=== PATIENT | female | born 1955 | race Caucasian/White ===

== ENCOUNTER 2023-08-05 23:07 | Inpatient (IN) | payer MEDICARE, OTHER ==
--- NOTE | 2023-08-05 23:18 | ED ---
Neuro HPI - General Stated Complaint: Stroke Time Seen by Provider: 08/05/23 23:10 Source: patient, EMS Limitations: physical limitation - History of Present Illness Is the patient presenting with stroke symptoms?: Yes -: hour(s) Initial Comments: This patient is a 68-year-old woman with history of previous stroke. She is brought to have evaluation of change in mentation, suspected left-sided weakness. The patient last seen at her baseline approximately 6 PM. The patient was checked by family members and they felt that she was not acting like her usual self. She usually is speaking quite a bit and they noticed that she was not speaking tonight. They also felt that her left side was weak. She does have left-sided residual weakness from her previous stroke but they felt that things were worse today. The patient is able to acknowledge questions though she is not speaking. She denies pain. - Related Data Home Medications: Home Medications Medication Instructions Recorded Confirmed Cholecalciferol [Vitamin D3 (25 50 mcg PO DAILY 08/06/23 08/06/23 Mcg = 1000 Iu)] Dulaglutide [Trulicity] 1.5 mg SQ Q7D 08/06/23 08/06/23 Levothyroxine Sodium [Synthroid] 100 mcg PO AC-BRKFST 08/06/23 08/06/23 Previous Rx's Medication Instructions Recorded Acetaminophen Tab [Tylenol] 650 mg PO Q6HR PRN tab 08/09/23 Aspirin 81 mg PO DAILY tab 08/09/23 Atorvastatin [Lipitor] 40 mg PO DAILY tab 08/09/23 Clopidogrel [Plavix] 75 mg PO DAILY #18 tab 08/09/23 INSULIN ASPART (NovoLOG) [NovoLOG 0 unit SQ AC-TID each 08/09/23 (formulary)] Ipratropium-Albuterol Nebulize 3 ml INHALATION RT-TID each 08/09/23 [Duoneb 0.5 mg-3 mg/3 ml Soln] Lisinopril-Hctz 20-12.5 mg 1 each PO BID tab 08/09/23 [Zestoretic 20-12.5] Nicotine 21Mg/24Hr Patch [Habitrol] 1 patch TRANSDERM DAILY patch 08/09/23 QUEtiapine [SEROquel] 12.5 mg PO HS tab 08/09/23 Allergies/Adverse Reactions: Allergies Allergy/AdvReac Type Severity Reaction Status Date / Time No Known Allergies Allergy Unverified 08/06/23 08:20 Review of Systems ROS Statement: Those systems with pertinent positive or pertinent negative responses have been documented in the HPI. ROS Other: All systems not noted in ROS Statement are negative. Limitations: ROS unobtainable due to patients medical condition (Is nonverbal) Constitutional: Denies: fever Eyes: Denies: vision change Respiratory: Denies: cough, dyspnea Cardiovascular: Denies: chest pain Gastrointestinal: Denies: abdominal pain, vomiting Musculoskeletal: Denies: back pain Neurological: Reports: weakness. Denies: headache General Exam General appearance: alert, in no apparent distress Head exam: Present: atraumatic, normocephalic Eye exam: Present: normal appearance, PERRL, EOMI. Absent: scleral icterus, conjunctival injection ENT exam: Present: mucous membranes dry Neck exam: Present: normal inspection, full ROM. Absent: tenderness Respiratory exam: Present: wheezes (End expiratory wheeze). Absent: respiratory distress, rales, rhonchi, stridor, accessory muscle use Cardiovascular Exam: Present: regular rate, normal rhythm, normal heart sounds. Absent: systolic murmur, diastolic murmur, rubs, gallop GI/Abdominal exam: Present: soft. Absent: distended, tenderness, guarding, rebound, rigid, mass Extremities exam: Present: normal inspection, normal capillary refill. Absent: pedal edema, calf tenderness Back exam: Present: normal inspection. Absent: CVA tenderness (R), CVA tenderness (L) Neurological exam: Present: alert, CN II-XII intact Expanded Speech: Present: expressive aphasia Cranial nerves: EOM's Intact: Normal, Tongue Deviation: Normal Motor strength exam: RUE: 5, LUE: 5, RLE: 3, LLE: 3 Eye Response: (4) open spontaneously Motor Response: (6) obeys commands Verbal Response: (1) no verbal response Skin exam: Present: warm, dry, intact, normal color. Absent: rash Stroke MDM - Lab Data Result diagrams: 08/05/23 23:27 08/05/23 23:27 Lab Results 08/05/23 08/05/23 08/05/23 Range/Units 23:20 23:27 23:27 WBC 9.9 (3.8-10.6) k/uL RBC 5.53 H (3.80-5.40) m/uL Hgb 16.1 H (11.4-16.0) gm/dL Hct 50.2 H (34.0-46.0) % MCV 90.8 (80.0-100.0) fL MCH 29.1 (25.0-35.0) pg MCHC 32.0 (31.0-37.0) g/dL RDW 12.3 (11.5-15.5) % Plt Count 259 (150-450) k/uL MPV 10.7 Neutrophils % 61 % Lymphocytes % 27 % Monocytes % 5 % Eosinophils % 4 % Basophils % 2 % Neutrophils # 6.0 (1.3-7.7) k/uL Lymphocytes # 2.7 (1.0-4.8) k/uL Monocytes # 0.5 (0-1.0) k/uL Eosinophils # 0.4 (0-0.7) k/uL Basophils # 0.2 (0-0.2) k/uL PT 10.7 (10.0-12.5) sec INR 1.0 (<1.2) APTT 18.9 L (22.0-30.0) sec Sodium (137-145) mmol/L Potassium (3.5-5.1) mmol/L Chloride (98-107) mmol/L Carbon Dioxide (22-30) mmol/L Anion Gap mmol/L BUN (7-17) mg/dL Creatinine (0.52-1.04) mg/dL Est GFR (CKD-EPI)AfAm (>60 ml/min/1.73 sqM) Est GFR (CKD-EPI)NonAf (>60 ml/min/1.73 sqM) Glucose (74-99) mg/dL POC Glucose (mg/dL) 140 H (70-110) mg/dL POC Glu [employer] [address] Glu mg/dL mg/dL Hemoglobin A1c (<=6.0) % Calcium (8.4-10.2) mg/dL Total Bilirubin (0.2-1.3) mg/dL AST (14-36) U/L ALT (4-34) U/L Alkaline Phosphatase (38-126) U/L Creatine Kinase (30-135) U/L Troponin I (0.000-0.034) ng/mL Total Protein (6.3-8.2) g/dL Albumin (3.5-5.0) g/dL TSH (0.465-4.680) mIU/L 08/05/23 08/05/23 08/05/23 Range/Units 23:27 23:27 23:27 WBC (3.8-10.6) k/uL RBC (3.80-5.40) m/uL Hgb (11.4-16.0) gm/dL Hct (34.0-46.0) % MCV (80.0-100.0) fL MCH (25.0-35.0) pg MCHC (31.0-37.0) g/dL RDW (11.5-15.5) % Plt Count (150-450) k/uL MPV Neutrophils % % Lymphocytes % % Monocytes % % Eosinophils % % Basophils % % Neutrophils # (1.3-7.7) k/uL Lymphocytes # (1.0-4.8) k/uL Monocytes # (0-1.0) k/uL Eosinophils # (0-0.7) k/uL Basophils # (0-0.2) k/uL PT (10.0-12.5) sec INR (<1.2) APTT (22.0-30.0) sec Sodium 138 (137-145) mmol/L Potassium 4.6 (3.5-5.1) mmol/L Chloride 102 (98-107) mmol/L Carbon Dioxide 28 (22-30) mmol/L Anion Gap 8 mmol/L BUN 29 H (7-17) mg/dL Creatinine 0.67 (0.52-1.04) mg/dL Est GFR (CKD-EPI)AfAm >90 (>60 ml/min/1.73 sqM) Est GFR (CKD-EPI)NonAf >90 (>60 ml/min/1.73 sqM) Glucose 139 H (74-99) mg/dL POC Glucose (mg/dL) (70-110) mg/dL POC Glu General Manager [employer] ID [address] Glu mg/dL mg/dL Hemoglobin A1c (<=6.0) % Calcium 9.9 (8.4-10.2) mg/dL Total Bilirubin 0.9 (0.2-1.3) mg/dL AST 41 H (14-36) U/L ALT 47 H (4-34) U/L Alkaline Phosphatase 129 H (38-126) U/L Creatine Kinase 50 (30-135) U/L Troponin I <0.012 (0.000-0.034) ng/mL Total Protein 7.2 (6.3-8.2) g/dL Albumin 4.5 (3.5-5.0) g/dL TSH 2.780 (0.465-4.680) mIU/L 08/05/23 Range/Units 23:47 WBC (3.8-10.6) k/uL RBC (3.80-5.40) m/uL Hgb (11.4-16.0) gm/dL Hct (34.0-46.0) % MCV (80.0-100.0) fL MCH (25.0-35.0) pg MCHC (31.0-37.0) g/dL RDW (11.5-15.5) % Plt Count (150-450) k/uL MPV Neutrophils % % Lymphocytes % % Monocytes % % Eosinophils % % Basophils % % Neutrophils # (1.3-7.7) k/uL Lymphocytes # (1.0-4.8) k/uL Monocytes # (0-1.0) k/uL Eosinophils # (0-0.7) k/uL Basophils # (0-0.2) k/uL PT (10.0-12.5) sec INR (<1.2) APTT (22.0-30.0) sec Sodium (137-145) mmol/L Potassium (3.5-5.1) mmol/L Chloride (98-107) mmol/L Carbon Dioxide (22-30) mmol/L Anion Gap mmol/L BUN (7-17) mg/dL Creatinine (0.52-1.04) mg/dL Est GFR (CKD-EPI)AfAm (>60 ml/min/1.73 sqM) Est GFR (CKD-EPI)NonAf (>60 ml/min/1.73 sqM) Glucose (74-99) mg/dL POC Glucose (mg/dL) (70-110) mg/dL POC Glu General Manager [employer] ID [address] Glu mg/dL 214 mg/dL Hemoglobin A1c 9.1 H (<=6.0) % Calcium (8.4-10.2) mg/dL Total Bilirubin (0.2-1.3) mg/dL AST (14-36) U/L ALT (4-34) U/L Alkaline Phosphatase (38-126) U/L Creatine Kinase (30-135) U/L Troponin I (0.000-0.034) ng/mL Total Protein (6.3-8.2) g/dL Albumin (3.5-5.0) g/dL TSH (0.465-4.680) mIU/L - Medical Decision Making Patient is 68-year-old woman arriving by ambulance with concerns about acute stroke on top of her previous residual deficit. Case discussed with the interventional stroke team. The patient is outside of thrombolytic window. Patient's daughter did subsequently arrive. She states that the patient does have definite speech change versus last time she had seen her mother, it was weeks ago. On reevaluation after CT scan the patient is speaking though slowly. The patient will be admitted to have further neurology evaluation and treatment. Patient had previous stroke in March. She was not evaluated at that time. The patient's daughter stated that she did not want to go to the hospital. Since that time she has been able to walk with a walker. Speech was clear. The patient had CT of the brain that I interpreted as negative for acute intracranial hemorrhage. The patient had chest x-ray that I interpreted as negative for acute infiltrate, pneumothorax, congestive heart failure. The patient had CT angiography which I interpreted as not demonstrating acute arterial obstruction Was pt. sent in by a medical professional or institution (, PA, WATER FILTERER, urgent care, hospital, or shelter...) When possible be specific @ -[Sent from long-term care facility Did you speak to anyone other than the patient for history (EMS, parent, family, police, friend...)? What history was obtained from this source @ -[History initially from EMS. Family subsequently provided additional history Did you review nursing and triage notes (agree or disagree)? Why? @ -[I reviewed and agree with nursing and triage notes] Were old charts reviewed (outside hosp., previous admission, EMS record, old EKG, old radiological studies, urgent care reports/EKG's, shelter records)? Report findings @ -[No old charts were reviewed] Differential Diagnosis (chest pain, altered mental status, abdominal pain women, abdominal pain men, vaginal bleeding, weakness, fever, dyspnea, syncope, headache, dizziness, GI bleed, back pain, seizure, CVA, palpatations, mental health, musculoskeletal)? @ -[Differential CVA Ischemic stroke, hemorrhagic stroke, brain tumor, atypical migraine, Wernicke's encephalopathy, seizure, multiple sclerosis, meningitis, encephalitis, hypoglycemia, Guillain-Barajas, electrolytes disturbance, myasthenia gravis.... This is not meant to be an all-inclusive list EKG interpreted by me (3pts min.). @ -[I interpreted as above] X-rays interpreted by me (1pt min.). @ -[I interpreted as above CT interpreted by me (1pt min.). @ -[I interpreted as above U/S interpreted by me (1pt. min.). @ -[None done] What testing was considered but not performed or refused? (CT, X-rays, U/S, labs)? Why? @ -[None] What meds were considered but not given or refused? Why? @ -[None] Did you discuss the management of the patient with other professionals (professionals i.e. , PA, WATER FILTERER, lab, RT, psych nurse, psychotherapist social worker, equal employment opportunity officer, teacher, sewage reticulation drafting officer, behavioral health case manager)? Give summary @ -Case discussed with the admitting physician and also with the neurointerventional list and their treatment recommendations are incorporated Was smoking cessation discussed for >3mins.? @ -[No] Was critical care preformed (if so, how long)? @ -[Yes, 35 minutes Were there social determinants of health that impacted care today? How? (Home lessness, low income, unemployed, alcoholism, drug addiction, transportation, low edu. Level, literacy, decrease access to med. care, nursing home, rehab)? @ -[No] Was there de-escalation of care discussed even if they declined (Discuss DNR or withdrawal of care, Hospice)? DNR status @ -[No] What co-morbidities impacted this encounter? (DM, HTN, Smoking, COPD, CAD, Cancer, CVA, ARF, Chemo, Hep., AIDS, mental health diagnosis, sleep apnea, morbid obesity)? @ -[Hypertension, previous stroke Was patient admitted / discharged? Hospital course, mention meds given and route, prescriptions, significant lab abnormalities, going to OR and other pertinent info. @ -[Patient is admitted to have further neurology evaluation and treatment. Undiagnosed new problem with uncertain prognosis? @ -[No] Drug Therapy requiring intensive monitoring for toxicity (Heparin, Nitro, Insulin, Cardizem)? @ -[No] Were any procedures done? @ -[ Diagnosis/symptom? @ -[Altered mental status, possible acute ischemic stroke Acute, or Chronic, or Acute on Chronic? @ -[Acute Uncomplicated (without systemic symptoms) or Complicated (systemic symptoms)? @ -[Uncomplicated Side effects of treatment? @ -[No] Exacerbation, Progression, or Severe Exacerbation? @ -[No] Poses a threat to life or bodily function? How? (Chest pain, [place], [place], pneumonia, PE, COPD, DKA, ARF, appy, cholecystitis, CVA, Diverticulitis, Homicidal, Suicidal, threat to staff... and all critical care pts) @ -[Yes - EKG Data -: EKG Interpreted by Me EKG shows normal: sinus rhythm, axis (Normal), intervals (Normal), QRS complexes (Normal), ST-T waves (Normal) Rate: normal (Rate 92 bpm) Interpretation: normal EKG Course Vital Signs 08/05/23 08/05/23 08/05/23 23:18 23:25 23:40 Temperature 98.6 F 98.6 F 98.5 F Pulse Rate 101 H 95 89 Respiratory 18 18 15 Rate Blood Pressure 184/88 160/91 170/87 O2 Sat by Pulse 98 98 97 Oximetry 08/05/23 08/06/23 08/06/23 23:55 00:10 00:25 Temperature 98.6 F 98.5 F 98.1 F Pulse Rate 88 106 H 99 Respiratory 15 18 18 Rate Blood Pressure 177/81 153/78 168/101 O2 Sat by Pulse 98 97 97 Oximetry 08/06/23 08/06/23 08/06/23 00:40 00:55 01:55 Temperature 98.1 F 98.1 F 98 F Pulse Rate 106 H 96 98 Respiratory 20 18 17 Rate Blood Pressure 183/104 183/104 159/89 O2 Sat by Pulse 95 96 95 Oximetry 08/06/23 08/06/23 08/06/23 03:42 03:55 04:55 Temperature 98.1 F 97.8 F Pulse Rate 97 101 H 101 H Respiratory 15 15 18 Rate Blood Pressure 156/98 173/94 161/95 O2 Sat by Pulse 97 95 95 Oximetry 08/06/23 08/06/23 08/06/23 07:00 09:31 15:00 Temperature 97.7 F Pulse Rate 100 92 100 Respiratory 16 18 18 Rate Blood Pressure 165/93 155/91 151/84 O2 Sat by Pulse 97 95 95 Oximetry 08/06/23 08/06/23 08/06/23 16:04 16:14 20:10 Temperature Pulse Rate 102 H 96 103 H Respiratory Rate Blood Pressure O2 Sat by Pulse Oximetry 08/06/23 08/06/23 08/07/23 20:20 22:00 00:57 Temperature Pulse Rate 97 100 92 Respiratory 15 17 Rate Blood Pressure 167/91 156/99 O2 Sat by Pulse 98 99 Oximetry 08/07/23 08/07/23 08/07/23 01:00 01:30 02:30 Temperature Pulse Rate 98 96 105 H Respiratory 18 16 15 Rate Blood Pressure 156/99 166/86 175/94 O2 Sat by Pulse 100 99 99 Oximetry Disposition Clinical Impression: Altered mental status Disposition: ADMITTED IP TO THIS [facility] Condition: Fair Is patient prescribed a controlled substance at d/c from ED?: No
[2023-08-05 23:22] LABS: Glucose,Whole Blood 140 mg/dL (70-110)
[2023-08-05 23:49] LABS: Basophils # (A) 0.2 k/uL (0-0.2); Basophils % (A) 2 %; Eosinophils # (A) 0.4 k/uL (0-0.7); Eosinophils % (A) 4 %; HCT 50.2 % (34.0-46.0); HGB 16.1 gm/dL (11.4-16.0); Lymphocytes # (A) 2.7 k/uL (1.0-4.8); Lymphocytes % (A) 27 %; MCH 29.1 pg (25.0-35.0); MCV 90.8 fL (80.0-100.0); Mean Platelet Volume 10.7; Monocytes # (A) 0.5 k/uL (0-1.0); Monocytes % (A) 5 %; Neutrophils % (A) 61 %; Platelet Count 259 k/uL (150-450); RBC 5.53 m/uL (3.80-5.40); RDW 12.3 % (11.5-15.5); WBC 9.9 k/uL (3.8-10.6)
--- NOTE | 2023-08-05 23:53 | CT ---
EXAM: CT Head Without Intravenous Contrast CLINICAL HISTORY: Neuro deficit, acute, stroke suspected TECHNIQUE: Axial computed tomography images of the head/brain without intravenous contrast. CTDI is 49.2 mGy and DLP is 1092.1 mGy-cm. This CT exam was performed using one or more of the following dose reduction techniques: automated exposure control, adjustment of the mA and/or kV according to patient size, and/or use of iterative reconstruction technique. COMPARISON: No relevant prior studies available. FINDINGS: Brain: Age-appropriate generalized atrophy. No acute hemorrhage or abnormal extra-axial fluid collection. No definite acute stroke. Age indeterminant right thalamic and anterior limb left internal capsule lacunar infarcts. Small old right cerebellar infarcts. Mild supratentorial periventricular and subcortical white matter changes. Ventricles: No hydrocephalus. No midline shift. Bones/joints: Unremarkable. No acute fracture. Soft tissues: Unremarkable. Sinuses: Unremarkable as visualized. No acute sinusitis. IMPRESSION: No definite acute stroke. Age indeterminant right thalamic and anterior limb left internal capsule lacunar infarcts. Small old right cerebellar infarct. Non-specific white matter changes, most commonly seen with small vessel disease.
[2023-08-05 23:58] LABS: ALT 47 U/L (4-34); AST 41 U/L (14-36); African American GFR (CKD) >90 (>60 ml/min/1.73 sqM); Albumin 4.5 g/dL (3.5-5.0); Alkaline Phosphatase 129 U/L (38-126); Anion Gap 8 mmol/L; Blood Urea Nitrogen 29 mg/dL (7-17); Calcium 9.9 mg/dL (8.4-10.2); Carbon Dioxide 28 mmol/L (22-30); Chloride 102 mmol/L (98-107); Creatine Kinase 50 U/L (30-135); Glucose 139 mg/dL (74-99); Non-African American GFR(CKD) >90 (>60 ml/min/1.73 sqM); Sodium 138 mmol/L (137-145); Total Bilirubin 0.9 mg/dL (0.2-1.3); Total Protein 7.2 g/dL (6.3-8.2)
[2023-08-06] LABS: Potassium 4.6 mmol/L (3.5-5.1)
[2023-08-06 00:05] LABS: Prothrombin Time 10.7 sec (10.0-12.5)
--- NOTE | 2023-08-06 00:34 | CT ---
EXAM: CT Angiography Head With Intravenous Contrast CLINICAL HISTORY: Neuro deficit, acute, stroke suspected TECHNIQUE: Axial computed tomographic angiography images of the head with intravenous contrast. CTDI is 17.4 mGy and DLP is 149.35 mGy-cm. This CT exam was performed using one or more of the following dose reduction techniques: automated exposure control, adjustment of the mA and/or kV according to patient size, and/or use of iterative reconstruction technique. 3D and MIP reconstructed images were created and reviewed. COMPARISON: CT brain 08/05/2023. FINDINGS: Right internal carotid artery: Moderate calcified plaque at the cavernous internal carotid artery with intact distal runoff. No aneurysm. Right anterior cerebral artery: Unremarkable. No occlusion or significant stenosis. No aneurysm. Right middle cerebral artery: Unremarkable. No occlusion or significant stenosis. No aneurysm. Right posterior cerebral artery: Mild stenosis of the junction of the P1 and P2 segment with intact distal runoff. No occlusion or significant stenosis. No aneurysm. Right vertebral artery: Severely hypoplastic terminating proximal to the basilar artery. Left internal carotid artery: Moderate calcified plaque at the cavernous internal carotid artery with intact distal runoff. No aneurysm. Left anterior cerebral artery: Unremarkable. No occlusion or significant stenosis. No aneurysm. Left middle cerebral artery: Unremarkable. No occlusion or significant stenosis. No aneurysm. Left posterior cerebral artery: Moderate stenosis of the P3 segment without occlusion. No aneurysm. Left vertebral artery: Dominant. Calcified plaque with intact distal runoff. Basilar artery: Unremarkable. No occlusion or significant stenosis. No aneurysm. IMPRESSION: No large vessel occlusion. Multifocal plaque without occlusion. EXAM: CT Angiography Neck With Intravenous Contrast CLINICAL HISTORY: Neuro deficit, acute, stroke suspected TECHNIQUE: Routine carotid CT angiography protocol was performed with intravenous contrast. NASCET criteria using the distal ICAs for comparison were used for evaluation of stenoses. CTDI is 17.4 mGy and DLP is 149.35 mGy-cm. This CT exam was performed using one or more of the following dose reduction techniques: automated exposure control, adjustment of the mA and/or kV according to patient size, and/or use of iterative reconstruction technique. 3D and MIP reconstructed images were created and reviewed. COMPARISON: None. FINDINGS: VASCULATURE: Right common carotid artery: Unremarkable. No occlusion or significant stenosis. No dissection. Right internal carotid artery: Mild calcified plaque at the right carotid bulb without a hemodynamically significant stenosis. No dissection. Right external carotid artery: Unremarkable. No occlusion. Right vertebral artery: Hypoplastic. No occlusion or significant stenosis. No dissection. Left common carotid artery: Unremarkable. No occlusion or significant stenosis. No dissection. Left internal carotid artery: Mild calcified plaque at the left carotid bulb without a hemodynamically significant stenosis. No dissection. Left external carotid artery: Unremarkable. No occlusion. Left vertebral artery: Dominant. No occlusion or significant stenosis. No dissection. Aorta: Moderate calcified plaque at the proximal subclavian artery. NECK: Bones/joints: Degenerative changes of the spine. No acute fracture. Soft tissues: Unremarkable. Lung apices: Partially visualized bilateral breast implants. CAROTID STENOSIS REFERENCE USING NASCET CRITERIA: % ICA stenosis = (1 - narrowest ICA diameter/diameter of distal cervical ICA) x 100. Mild - <50% stenosis. Moderate - 50-69% stenosis. Severe - 70-94% stenosis. Near occlusion - 95-99% stenosis. Occluded - 100% stenosis. IMPRESSION: Mild calcified plaque at the bilateral carotid bulbs without a hemodynamically significant stenosis.
--- NOTE | 2023-08-06 00:45 | XR ---
EXAM: XR Chest, 1 View CLINICAL HISTORY: altered mental status TECHNIQUE: Frontal view of the chest. COMPARISON: No relevant prior studies available. FINDINGS: Lungs: No infiltrate. No atelectasis. No CHF. Pleural space: No pleural effusion. No pneumothorax. Heart: Unremarkable. No cardiomegaly. Mediastinum: Unremarkable. Normal mediastinal contour. Bones/joints: Degenerative changes of the spine. No acute fracture. IMPRESSION: No acute abnormality.
[2023-08-06 01:11] LABS: Partial Thromboplastin Time 18.9 sec (22.0-30.0)
[2023-08-06] MEDS: ASPIRIN 325 MG TAB PO STA (02:05)
[2023-08-06] MEDS: SODIUM CHLORIDE 0.9% 1,000 ML IV SCH (02:06)
[2023-08-06] MEDS: ATORVASTATIN 40 MG TAB PO SCH (09:56)
[2023-08-06] MEDS: FAMOTIDINE 20 MG/2 ML VIAL IV SCH (09:56)
[2023-08-06] MEDS: DOCUSATE 100 MG CAP PO SCH (10:01)
[2023-08-06] MEDS: INSULIN DETEMIR (LEVEMIR) 100 UNIT/ML SYR SQ SCH (10:45)
[2023-08-06] MEDS: PATIENT'S OWN (Dulaglutide [Trulicity] 1.5 MG/0.5 ML Each) SQ SCH (11:56)
[2023-08-06] MEDS: metFORMIN 500 MG TAB PO SCH (11:57)
[2023-08-06] MEDS: ENOXAPARIN 40 MG/0.4 ML SYRINGE SQ SCH (12:10)
--- NOTE | 2023-08-06 12:29 | CA ---
Transthoracic Echo Report Name: Renetta Clarke Age: 68 Gender: F : 1955 Exam Date: 08/06/2023 09:14 Exam Location: [facility] Ht (in): 61 Wt (lb): 130 Ordering Physician: Ren Peralta MD Attending/Referring Phys: Operations Officer [employer] Elvi Minaya RDCS Procedure CPT: Indications: Thrombus Cardiac Hx: Technical Quality: Good Contrast 1: Total Dose (mL): Contrast 2: Total Dose (mL): MEASUREMENTS (Male / Female) Normal Values 2D ECHO LV Diastolic Diameter PLAX 3.8 cm 4.2 - 5.9 / 3.9 - 5.3 cm LV Systolic Diameter PLAX 2.6 cm IVS Diastolic Thickness 1.0 cm 0.6 - 1.0 / 0.6 - 0.9 cm LVPW Diastolic Thickness 1.0 cm 0.6 - 1.0 / 0.6 - 0.9 cm LV Relative Wall Thickness 0.5 RV Internal Dim ED PLAX 2.8 cm LA Systolic Diameter LX 3.1 cm 3.0 - 4.0 / 2.7 - 3.8 cm M-MODE Aortic Root Diameter MM 3.1 cm MV E Point Septal Separation 1.3 cm DOPPLER AV Peak Velocity 83.5 cm/s AV Peak Gradient 2.8 mmHg MV Area PHT 2.3 cm??? Mitral E Point Velocity 66.4 cm/s Mitral A Point Velocity 83.6 cm/s Mitral E to A Ratio 0.8 MV Deceleration Time 324.1 ms FINDINGS Left Ventricle Left ventricular ejection fraction is estimated at 55-60 %. Small left ventricular cavity. Left ventricular wall thickness normal. Right Ventricle Normal right ventricular size and function. Unable to estimate the right ventricular systolic pressure. Right Atrium Normal right atrial size. Negative agitated saline bubble study for right to left shunt. Left Atrium Normal left atrial size. Mitral Valve Mitral valve thickened. Mild mitral annular calcification. Aortic Valve Trileaflet aortic valve. No aortic valve stenosis or regurgitation. Tricuspid Valve Structurally normal tricuspid valve. No tricuspid stenosis, regurgitation or prolapse. Pulmonic Valve Structurally normal pulmonic valve. No pulmonic regurgitation. Pericardium No pericardial effusion. Aorta Normal size aortic root and proximal ascending aorta. CONCLUSIONS Preserved LV size and systolic function No masses No right to left shunts Previewed by: Dr. Luis F Moser MD (Electronically Signed) Final Date: 06 August 2023 12:28
[2023-08-06] MEDS: LEVOTHYROXINE 100 MCG TAB PO SCH (12:57)
[2023-08-06] MEDS ORDERED: CALCIUM CARBONATE 500 MG CHEWABLE PO PRN (15:23)
[2023-08-06] MEDS ORDERED: ONDANSETRON 4 MG/2 ML VIAL IVP PRN (15:23)
[2023-08-06] MEDS ORDERED: MELATONIN 3 MG TABLET PO PRN (15:23)
[2023-08-06] MEDS ORDERED: LORazepam 0.5 MG TAB PO PRN (15:23)
[2023-08-06] MEDS ORDERED: LACTULOSE 20 GM/30 ML CUP PO PRN (15:23)
[2023-08-06] MEDS ORDERED: NALOXONE 0.4 MG/ML 1 ML VIAL IV PRN (15:23)
[2023-08-06] MEDS ORDERED: DEXTROSE 50% SYRINGE 50 ML IVP PRN ×2 (15:29)
--- NOTE | 2023-08-06 15:33 | P.HPIM ---
History of Present Illness H&P Date: 08/06/23 Chief Complaint: Patient not speaking 68-year-old patient, brought to the ER by EMS. Per the EMS patient is presenting with left-sided weakness. Facial droop arm drift leg weakness. Unable to speak. Patient was last seen normal at 6 PM. Blood glucose was 159.. No family at the bedside. In the ER patient is able to move her left side. And she could only say yeah to me. EMS was called around 9 PM. Spoke to patient's daughter Nia Lo, who lives out of town. Telephone #[phone]. Patient has history of bipolar. Since [place] time she noted that the patient is being Active. Patient used to live in a place called [address]. But decided to leave the place and stay with us ID: Luci. This was a person from her [employer]. Patient has been smoking maybe a pack to 2 packs a day for a long time. The daughter met the patient about 3 weeks ago. Patient is able to answer questions. Use a walker. Patient denies expressed to the daughter that she wants to be a DNR. Review of systems: Cannot be obtained as patient not able to speak Social history: Apparently lives with family Physical examination: VITAL SIGNS: 98.6, 101, 18, 184/88, 98% room air upon presentation GENERAL: BMI 24.6, reclining in bed awake. EYES: Pupils equal. Conjunctiva aneta l. HEENT: External appearance of nose and ears normal, oral cavity grossly normal. NECK: JVD not raised; masses not palpable. HEART: First and second heart sounds are normal; no edema. LUNGS: Respiratory rate normal; decreased breath sounds n. ABDOMEN: Soft, nontender, liver spleen not palpable, no masses palpable. PSYCH: Patient not able to speak l. MUSCULOSKELETAL:No Clubbing/cyanosis;muscles-grossly intact. OA NEUROLOGICAL: Only able to say yeah-able to move both the left and right side.. LYMPHATICS: No lymph nodes palpable in the axilla and neck INVESTIGATIONS, reviewed in the clinical context: 2D echocardiogram: EF 55 to 60%. August 05, 2023: White count 9.9 hemoglobin 16.1 platelets 259 sodium 138 potassium 4.6 BUN 29 creatinine 0.67 AST 41 ALT 47 Troponin I less than 0.012 EKG tracing personally reviewed by me-normal sinus rhythm. CT scan head without contrast: Age-indeterminate right thalamic and anterior limb left internal capsule lacunar infarct. Small old right cerebellar infarct. Nonspecific white matter changes. CT angiogram head and neck: Mild calcified plaque at bilateral bulb. No significant stenosis Chest x-ray film personally reviewed by me-hyperinflated Assessment plan: -Acute stroke in the brainstem. Aspirin. Add Lipitor. Neurochecks. Neurology consulted PT OT -Diabetes mellitus type 2, on oral hypoglycemic Hold metformin. Cut back Levemir to 10 units. Follow Accu-Cheks with sliding scale -Acute aphasia secondary to stroke Speech therapy consult -COPD and a current smoker DuoNeb 4 times daily -Chronic nicotine dependence, cigarette smoker -Acute dysphagia from stroke. Seen by speech therapist. Started on pured aspiration diet. -Essential hypertension Lisinopril hydrochlorothiazide 20.51 tablet nightly -Primary osteoarthritis Tylenol as needed -Bipolar disorder. As per the daughter patient has stopped taking medications a while ago. At this point patient not able to talk. Will hold off any psychiatry consultation till patient able to speak -DNR [as per the daughter, patient's wishes] -Consult social services aide. To help with disposition and help daughter with legal guardianship Past Medical History Additional Past Medical History / Comment(s): hx stroke per EMS History of Any Multi-Drug Resistant Organisms: Unobtainable Past Surgical History: Unable to Obtain Past Psychological History: Unable to Obtain Smoking Status: Unknown if ever smoked Past Alcohol Use History: Unable to Obtain Past Drug Use History: Unable to Obtain Medications and Allergies Home Medications Medication Instructions Recorded Confirmed Type Cholecalciferol [Vitamin D3 (25 50 mcg PO DAILY 08/06/23 08/06/23 History Mcg = 1000 Iu)] Dulaglutide [Trulicity] 1.5 mg SQ Q7D 08/06/23 08/06/23 History Insulin Detemir (Levemir) [Levemir] 20 unit SQ DAILY 08/06/23 08/06/23 History Levothyroxine Sodium [Synthroid] 100 mcg PO AC-BRKFST 08/06/23 08/06/23 History metFORMIN HCL [Glucophage] 1,000 mg PO BID 08/06/23 08/06/23 History Allergies Allergy/AdvReac Type Severity Reaction Status Date / Time No Known Allergies Allergy Unverified 08/06/23 08:20 Physical Exam Vitals: Vital Signs Temp Pulse Resp BP Pulse Ox 08/06/23 09:31 92 18 155/91 95 08/06/23 07:00 97.7 F 100 16 165/93 97 08/06/23 04:55 97.8 F 101 H 18 161/95 95 08/06/23 03:55 101 H 15 173/94 95 08/06/23 03:42 98.1 F 97 15 156/98 97 08/06/23 01:55 98 F 98 17 159/89 95 08/06/23 00:55 98.1 F 96 18 183/104 96 08/06/23 00:40 98.1 F 106 H 20 183/104 95 08/06/23 00:25 98.1 F 99 18 168/101 97 08/06/23 00:10 98.5 F 106 H 18 153/78 97 08/05/23 23:55 98.6 F 88 15 177/81 98 08/05/23 23:40 98.5 F 89 15 170/87 97 08/05/23 23:25 98.6 F 95 18 160/91 98 08/05/23 23:18 98.6 F 101 H 18 184/88 98 Intake and Output 08/05/23 08/06/23 08/06/23 22:59 06:59 14:59 Other: Weight 58.967 kg Results CBC & Chem 7: 08/05/23 23:27 08/05/23 23:27 Labs: Abnormal Lab Results - Last 24 Hours (Table) 08/05/23 08/05/23 08/05/23 Range/Units 23:20 23:27 23:27 RBC 5.53 H (3.80-5.40) m/uL Hgb 16.1 H (11.4-16.0) gm/dL Hct 50.2 H (34.0-46.0) % APTT 18.9 L (22.0-30.0) sec BUN (7-17) mg/dL Glucose (74-99) mg/dL POC Glucose (mg/dL) 140 H (70-110) mg/dL AST (14-36) U/L ALT (4-34) U/L Alkaline Phosphatase (38-126) U/L 08/05/23 Range/Units 23:27 RBC (3.80-5.40) m/uL Hgb (11.4-16.0) gm/dL Hct (34.0-46.0) % APTT (22.0-30.0) sec BUN 29 H (7-17) mg/dL Glucose 139 H (74-99) mg/dL POC Glucose (mg/dL) (70-110) mg/dL AST 41 H (14-36) U/L ALT 47 H (4-34) U/L Alkaline Phosphatase 129 H (38-126) U/L
[2023-08-06] MEDS: IPRATROPIUM-ALBUTEROL 3 ML NEB INHALATION SCH (16:09)
--- NOTE | 2023-08-06 16:54 | P.CNNES ---
History of Present Illness Consult date: 08/06/23 Requesting physician: Ren Peralta Reason for Consult: aphasia, acute CVA History of Present Illness: This is a 68 year-old woman who presents because of speech difficulty and left sided difficulty. Patient is having difficulty proving history but stated the speech and left sided weakness is new. Unable to notify time. She stated she has caregiver. Per ED last normal is 6pm yesterday and it seems family checked on her and she was not acting her self. It seems she was not speaking right and felt left side weakness is worse from her baseline. Has old stroke on left side She has prior stroke in March and did not want to go hospital and she walks with walker and speaks clearly at baseline. It does not apepar she is on antiplatelets at home. Some of the work-up during this hospital visit consisted of: Came in hypertensive: 184/88. Serum glucose is 139 I reviewed rest of lab work-up. CT head is reported as no definitive acute stroke. Age indeterminant right tahalmic and anterior limb left internal capsule lacunar infarct. Small old right cerebellar infarct. I personally reviewed CT head and agree no acute. CTA head and neck: No large vessel occlusion. Has multifocal plaque without occlusion. MIld calcified plaque at bilateral carotid bulb without significant stenosis. Code stroke was activated by ED team. He spoke with stroke team and recommended no IV thrombolytic since outside window. It seems risk outweigh benefits. 2D echo is reported as Preserved LV size and function. No mass. No right to left shunt. Review of Systems Limited but positive and negative as per HPI. Past Medical History Additional Past Medical History / Comment(s): hx stroke per EMS History of Any Multi-Drug Resistant Organisms: Unobtainable Past Surgical History: Unable to Obtain Past Psychological History: Unable to Obtain Smoking Status: Unknown if ever smoked Past Alcohol Use History: Unable to Obtain Past Drug Use History: Unable to Obtain Medications and Allergies Home Medications Medication Instructions Recorded Confirmed Type Cholecalciferol [Vitamin D3 (25 50 mcg PO DAILY 08/06/23 08/06/23 History Mcg = 1000 Iu)] Dulaglutide [Trulicity] 1.5 mg SQ Q7D 08/06/23 08/06/23 History Insulin Detemir (Levemir) [Levemir] 20 unit SQ DAILY 08/06/23 08/06/23 History Levothyroxine Sodium [Synthroid] 100 mcg PO AC-BRKFST 08/06/23 08/06/23 History metFORMIN HCL [Glucophage] 1,000 mg PO BID 08/06/23 08/06/23 History Allergies Allergy/AdvReac Type Severity Reaction Status Date / Time No Known Allergies Allergy Unverified 08/06/23 08:20 Physical Examination - Vital Signs Vital Signs: Vital Signs Temp Pulse Resp BP Pulse Ox 08/06/23 16:14 96 08/06/23 16:04 102 H 08/06/23 09:31 92 18 155/91 95 08/06/23 07:00 97.7 F 100 16 165/93 97 08/06/23 04:55 97.8 F 101 H 18 161/95 95 08/06/23 03:55 101 H 15 173/94 95 08/06/23 03:42 98.1 F 97 15 156/98 97 08/06/23 01:55 98 F 98 17 159/89 95 08/06/23 00:55 98.1 F 96 18 183/104 96 08/06/23 00:40 98.1 F 106 H 20 183/104 95 08/06/23 00:25 98.1 F 99 18 168/101 97 08/06/23 00:10 98.5 F 106 H 18 153/78 97 08/05/23 23:55 98.6 F 88 15 177/81 98 08/05/23 23:40 98.5 F 89 15 170/87 97 08/05/23 23:25 98.6 F 95 18 160/91 98 08/05/23 23:18 98.6 F 101 H 18 184/88 98 Intake and Output 08/06/23 08/06/23 08/06/23 06:59 14:59 22:59 Other: Weight 58.967 kg General: Lying in bed and does not appear in acute distress. Neuro: Very limited. Is awake, oriented to self and stated she is in the hospital. She is very slow responding. She correctly name pen. Following simple commands. Language is very limited but appear expressive. Is hypophonic. Pupils are round, equal and reactive to light. Pupils are 3-4mm bilaterally. Visual townsend are full to confrontation. Has mild to moderate right facial w eakness. Is dysarthric that is moderate to severe. Motor: Limited but left is 4- but right 4+. Sensation: Normal to touch throughout. Plantars: Mute bilaterally. Results - Laboratory Findings CBC and BMP: 08/05/23 23:27 08/05/23 23:27 Abnormal Lab Findings: Abnormal Labs 08/05/23 08/05/23 08/05/23 23:20 23:27 23:27 RBC 5.53 H Hgb 16.1 H Hct 50.2 H APTT 18.9 L BUN Glucose POC Glucose (mg/dL) 140 H AST ALT Alkaline Phosphatase 08/05/23 23:27 RBC Hgb Hct APTT BUN 29 H Glucose 139 H POC Glucose (mg/dL) AST 41 H ALT 47 H Alkaline Phosphatase 129 H Assessment and Plan Assessment: This is a 68 y/o woman with hx of stroke with residual left sided weakness who yesterday family members felt she was weaker than baseline on left with speech difficulty and very slow. She is not on antiplatelets at home. It seems she has prior weakness and refused to seek medical attending. Acute left sided weakness more than baseline, with expressive aphasia. On exam also has right facial weakness. Likely acute/subacute CVA. 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 Seems due to chronic small vessel disease Hypertension Plan: She is started on ASA 325mg daily by ED and Plavix 75mg daily by Primary. She was not on antiplatelets prior to this. She is on Lipitor 40mg daily. I ordered MRI Brain. Lipid panel is ordered and pending. Ordered HbA1c and TSH. neuro checks Cardiac monitoring PT, OT and MEDICAL BILLING SPECIALIST are consulted. Will defer the rest of medical management to primary team. For DVT prophylaxis: On lovenox Thank you for the consultation. Time with Patient: Greater than 30
[2023-08-06] MEDS: NICOTINE 21MG/24HR PATCH TRANSDERM SCH (16:55)
[2023-08-06] MEDS: CLOPIDOGREL 75 MG TAB PO SCH (16:55)
[2023-08-06 19:01] LABS: Glucose,Whole Blood 107 mg/dL (70-110)
[2023-08-06] MEDS: INSULIN ASPART (NovoLOG) 100 UNIT/ML VIAL SQ SCH (19:01)
[2023-08-06] MEDS ORDERED: cloNIDine 0.1 MG/24HR PATCH TRANSDERM SCH (21:00)
[2023-08-06] MEDS: QUEtiapine 25 MG TAB PO SCH (22:35)
[2023-08-06] MEDS: LISINOPRIL-HCTZ 20-12.5 MG 1 EACH TAB PO SCH (22:42)
[2023-08-07 06:30] LABS: Glucose,Whole Blood 144 mg/dL (70-110)
[2023-08-07] MEDS: ASPIRIN 325 MG TAB PO SCH (09:32)
[2023-08-07 11:59] LABS: Glucose,Whole Blood 194 mg/dL (70-110)
--- NOTE | 2023-08-07 12:32 | P.PN ---
Subjective Progress Note Date: 08/07/23 I am follow-up with the patient and patient continues to have severe expressive aphasia and very slow responding. Objective - Vital Signs Vital signs: Vital Signs Temp 98.2 F 08/07/23 12:00 Pulse 100 08/07/23 12:23 Resp 16 08/07/23 12:00 BP 160/72 08/07/23 12:00 Pulse Ox 95 08/07/23 12:00 FiO2 Intake & Output 08/06/23 08/07/23 08/07/23 18:59 06:59 18:59 Other: # Voids 1 1 # Bowel Movements 1 - Exam General: Lying in bed and does not appear in acute distress. Neuro: Very limited. Is awake, oriented to self and stated she is in the hospital. She is very slow responding. Following simple commands. Language is very limited but appears severe expressive. Is hypophonic. Pupils are round, equal and reactive to light. Pupils are 3-4mm bilaterally. Visual townsend are full to confrontation. Has mild to moderate right facial weakness. Is dysarthric that is moderate to severe. Motor: Limited but left is 4- but right 4+. Sensation: Normal to touch throughout. Plantars: Mute bilaterally. Serum glucose is 139 TSH: 2.78 HbA1c: 9.1 CT head is reported as no definitive acute stroke. Age indeterminant right tahalmic and anterior limb left internal capsule lacunar infarct. Small old right cerebellar infarct. I personally reviewed CT head and agree no acute. CTA head and neck: No large vessel occlusion. Has multifocal plaque without oc clusion. MIld calcified plaque at bilateral carotid bulb without significant stenosis. Code stroke was activated by ED team. He spoke with stroke team and recommended no IV thrombolytic since outside window. It seems risk outweigh benefits. 2D echo is reported as Preserved LV size and function. No mass. No right to left shunt. - Labs CBC & Chem 7: 08/05/23 23:27 08/05/23 23:27 Labs: Abnormal Lab Results - Last 24 Hours (Table) 08/05/23 08/07/23 08/07/23 Range/Units 23:47 06:28 11:56 POC Glucose (mg/dL) 144 H 194 H (70-110) mg/dL Hemoglobin A1c 9.1 H (<=6.0) % Assessment and Plan Assessment: This is a 68 y/o woman with hx of stroke with residual left sided weakness who yesterday family members felt she was weaker than baseline on left with speech d ifficulty and very slow. She is not on antiplatelets at home. It seems she has prior weakness and refused to seek medical attending. Acute left sided weakness more than baseline, with severe expressive aphasia. On exam also has right facial weakness. Likely acute/subacute CVA. No IV thrombolytic since outside window. 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 Seems due to chronic small vessel disease Hypertension DM (HbA1c 9.1). According to patient has hx of DM. Plan: She is started on ASA 325mg daily by ED and Plavix 75mg daily by Primary. She was not on antiplatelets prior to this. She is on Lipitor 40mg daily. Pending MRI Brain and Lipid panel. neuro checks Cardiac monitoring PT, OT and BRICK PITCHER are consulted. Will defer the rest of medical management to primary team. For DVT prophylaxis: On lovenox Time with Patient: Less than 30
[2023-08-07 13:06] VITALS: BMI 24.5
[2023-08-07 13:42] LABS: Chol/HDL Ratio 4.04 Ratio; LDL Cholesterol,Calculated 126.6 mg/dL (0.0-131.0)
--- NOTE | 2023-08-07 15:26 | P.PN ---
Progress Note - Text Progress Note Date: 08/07/23 Chief Complaint: Patient not speaking 68-year-old patient, brought to the ER by EMS. Per the EMS patient is presenting with left-sided weakness. Facial droop arm drift leg weakness. Unable to speak. Patient was last seen normal at 6 PM. Blood glucose was 159.. No family at the bedside. In the ER patient is able to move her left side. And she could only say yeah to me. EMS was called around 9 PM. Spoke to patient's daughter Nia Lo, who lives out of town. Telephone #[phone]. Patient has history of bipolar. Since [place] time she noted that the patient is being Active. Patient used to live in a place called [address]. But decided to leave the place and stay with us ID: Luci. This was a person from her [employer]. Patient has been smoking maybe a pack to 2 packs a day for a long time. The daughter met the patient about 3 weeks ago. Patient is able to answer questions. Use a walker. Patient denies expressed to the daughter that she wants to be a DNR. August 06: Still has left-sided weakness. Weakness on right side of the face. Patient's friend caregiver at the bedside. Patient may say words slowly. Ate 100% for breakfast with assistance. Active Medications Acetaminophen (Acetaminophen Tab 325 Mg Tab) 650 mg PO Q6HR PRN PRN Reason: Mild Pain or Fever > 100.5 Albuterol/Ipratropium (Ipratropium-Albuterol 3 Ml Neb) 3 ml INHALATION RT-TID [facility] Last Admin: 08/07/23 12:22 Dose: 3 ml Aspirin (Aspirin 325 Mg Tab) 325 mg PO DAILY [facility] Last Admin: 08/07/23 09:32 Dose: 325 mg Atorvastatin Calcium (Atorvastatin 40 Mg Tab) 40 mg PO DAILY [facility] Last Admin: 08/07/23 09:32 Dose: 40 mg Calcium Carbonate/Glycine (Calcium Carbonate 500 Mg Chewable) 1,000 mg PO Q4HR PRN PRN Reason: Dyspepsia Clopidogrel Bisulfate (Clopidogrel 75 Mg Tab) 75 mg PO DAILY [facility] Last Admin: 08/07/23 09:32 Dose: 75 mg Dextrose/Water (Dextrose 50% Syringe 50 Ml) 25 ml IVP PER PROTOCOL PRN; Protocol PRN Reason: Hypoglycemia Dextrose/Water (Dextrose 50% Syringe 50 Ml) 50 ml IVP PER PROTOCOL PRN; Protocol PRN Reason: Hypoglycemia Docusate Sodium (Docusate 100 Mg Cap) 100 mg PO Q8HR [facility] Last Admin: 08/07/23 09:32 Dose: 100 mg Enoxaparin Sodium (Enoxaparin 40 Mg/0.4 Ml Syringe) 40 mg SQ DAILY [facility] Last Admin: 08/07/23 09:32 Dose: 40 mg Lisinopril/HCTZ (Lisinopril-Hctz 20-12.5 Mg 1 Each Tab) 1 each PO HS [facility] Last Admin: 08/06/23 22:42 Dose: Not Given Sodium Chloride (Saline 0.9%) 1,000 mls @ 100 mls/hr IV .Q10H [facility] Last Admin: 08/07/23 06:51 Dose: 100 mls/hr Insulin Aspart (Insulin Aspart (Novolog) 100 Unit/Ml Vial) 0 unit SQ AC-TID [facility]; Protocol Last Admin: 08/07/23 12:23 Dose: 1 unit Insulin Detemir (Insulin Detemir (Levemir) 100 Unit/Ml Syr) 10 unit SQ DAILY@0700 [facility] Last Admin: 08/07/23 07:04 Dose: 10 unit Lactulose (Lactulose 20 Gm/30 Ml Cup) 20 gm PO DAILY PRN PRN Reason: Constipation Levothyroxine Sodium (Levothyroxine 100 Mcg Tab) 100 mcg PO 0630 [facility] Last Admin: 08/07/23 06:51 Dose: 100 mcg Lorazepam (Lorazepam 0.5 Mg Tab) 0.5 mg PO Q6HR PRN PRN Reason: Anxiety Melatonin (Melatonin 3 Mg Tablet) 3 mg PO HS PRN PRN Reason: Insomnia Naloxone HCl (Naloxone 0.4 Mg/Ml 1 Ml Vial) 0.2 mg IV Q2M PRN PRN Reason: Opioid Reversal Nicotine (Nicotine 21mg/24hr Patch) 1 patch TRANSDERM DAILY [facility] Last Admin: 08/07/23 09:32 Dose: 1 patch Patient's Own ( Dulaglutide [ Trulicity] 1.5 Mg/0. 5 Ml Each) 1.5 mg SQ Q7D [facility] Last Admin: 08/06/23 11:56 Dose: Not Given Ondansetron HCl (Ondansetron 4 Mg/2 Ml Vial) 4 mg IVP Q8HR PRN PRN Reason: Nausea And Vomiting Quetiapine Fumarate (Quetiapine 25 Mg Tab) 12.5 mg PO HS [facility] Last Admin: 08/06/23 22:41 Dose: Not Given Social history: Smoker. Lives with a friend. Physical examination: VITAL SIGNS: 98.2, 94, 16, 160 x 32, 95% room air GENERAL: BMI 24.6, reclining in bed awake. EYES: Pupils equal. Conjunctiva aneta l. HEENT: External appearance of nose and ears normal, oral cavity grossly normal. NECK: JVD not raised; masses not palpable. HEART: First and second heart sounds are normal; no edema. LUNGS: Respiratory rate normal; decreased breath sounds n. ABDOMEN: Soft, nontender, liver spleen not palpable, no masses palpable. PSYCH: Patient not able to speak l. MUSCULOSKELETAL:No Clubbing/cyanosis;muscles-grossly intact. OA NEUROLOGICAL: May speak a few words. Slowly slurred. Right facial weakness. Left-sided weakness power 3/5.. INVESTIGATIONS, reviewed in the clinical context: LDL 126 2D echocardiogram: EF 55 to 60%. August 05, 2023: White count 9.9 hemoglobin 16.1 platelets 259 sodium 138 potassium 4.6 BUN 29 creatinine 0.67 AST 41 ALT 47 Troponin I less than 0.012 EKG tracing personally reviewed by me-normal sinus rhythm. CT scan head without contrast: Age-indeterminate right thalamic and anterior limb left internal capsule lacunar infarct. Small old right cerebellar infarct. Nonspecific white matter changes. CT angiogram head and neck: Mild calcified plaque at bilateral bulb. No significant stenosis Chest x-ray film personally reviewed by me-hyperinflated Assessment plan: -Acute stroke in the brainstem., With right facial weakness left-sided weakness Aspirin. Lipitor. Plavix. Neurochecks. Neurology following PT OT -Diabetes mellitus type 2, on oral hypoglycemic Increased Levemir to 16 units. Follow Accu-Cheks with sliding scale -Acute aphasia secondary to stroke Speech therapy consult -COPD and a current smoker DuoNeb 4 times daily -Hyperlipidemia Lipitor -Chronic nicotine dependence, cigarette smoker -Acute dysphagia from stroke. Seen by speech therapist. Started on pured aspiration diet. -Essential hypertension, uncontrolled Increase lisinopril hydrochlorothiazide 20/12.5, to 1 tablet twice daily -Primary osteoarthritis Tylenol as needed -Bipolar disorder. As per the daughter patient has stopped taking medications a while ago. At this point patient not able to talk. Will hold off any psychiatry consultation till patient able to speak -DNR [as per the daughter, patient's wishes] -Consult social work manager. To help with disposition and help daughter with legal guardianship Increase lisinopril hydrochlorothiazide. Increase insulin. Spoke to the patient's friend at the bedside. Past Medical History Additional Past Medical History / Comment(s): hx stroke per EMS History of Any Multi-Drug Resistant Organisms: Unobtainable Past Surgical History: Unable to Obtain Past Psychological History: Unable to Obtain Smoking Status: Unknown if ever smoked Past Alcohol Use History: Unable to Obtain Past Drug Use History: Unable to Obtain
[2023-08-07 16:55] LABS: Glucose,Whole Blood 197 mg/dL (70-110)
[2023-08-07 20:06] LABS: Glucose,Whole Blood 180 mg/dL (70-110)
[2023-08-07] MEDS: LISINOPRIL-HCTZ 20-12.5 MG 1 EACH TAB PO SCH (21:14)
[2023-08-08 06:31] LABS: Glucose,Whole Blood 125 mg/dL (70-110)
[2023-08-08] MEDS: INSULIN DETEMIR (LEVEMIR) 100 UNIT/ML SYR SQ SCH (06:41)
[2023-08-08] MEDS: ASPIRIN 81 MG PO SCH (08:50)
--- NOTE | 2023-08-08 11:14 | P.PN ---
Subjective Progress Note Date: 08/08/23 I am following-up with patient and she is about the same. Is still very slow responding. Objective - Vital Signs Vital signs: Vital Signs Temp 98.3 F 08/08/23 08:49 Pulse 105 H 08/08/23 08:49 Resp 17 08/08/23 08:49 BP 144/76 08/08/23 08:49 Pulse Ox 95 08/08/23 08:49 FiO2 Intake & Output 08/07/23 08/08/23 08/08/23 18:59 06:59 18:59 Intake Total 118 Output Total 400 Balance -400 118 Weight 58.967 kg Intake: Oral 118 Output: Urine 400 Other: Voiding Method Diaper # Voids 1 3 2 # Bowel Movements 1 1 1 - Exam General: Lying in bed and does not appear in acute distress. Neuro: Very limited. Is awake, oriented to self and stated she is in the hospital. She is very slow responding. Following simple commands. Language is very limited but appears severe expressive. Is hypophonic. Pupils are round, equal and reactive to light. Pupils are 3-4mm bilaterally. Visual townsend are full to confrontation. Has mild to moderate right facial weakness. Is dysarthric that is moderate to severe. Motor: Limited but left is 4- but right 4+. Sensation: Normal to touch throughout. Plantars: Mute bilaterally. Serum glucose is 139 TSH: 2.78 HbA1c: 9.1 Lipid panel: TG 116, cholestrol 199, LDL [address] head is reported as no definitive acute stroke. Age indeterminant right tahalmic and anterior limb left internal capsule lacunar infarct. Small old right cerebellar infarct. I personally reviewed CT head and agree no acute. CTA head and neck: No large vessel occlusion. Has multifocal plaque without occlusion. MIld calcified plaque at bilateral carotid bulb without significant stenosis. Code stroke was activated by ED team. He spoke with stroke team and recommended no IV thrombolytic since outside window. It seems risk outweigh benefits. 2D echo is reported as Preserved LV size and function. No mass. No right to left shunt. - Labs CBC & Chem 7: 08/05/23 23:27 08/05/23 23:27 Labs: Abnormal Lab Results - Last 24 Hours (Table) 08/07/23 08/07/23 08/07/23 Range/Units 11:56 16:53 20:05 POC Glucose (mg/dL) 194 H 197 H 180 H (70-110) mg/dL 08/08/23 Range/Units 06:30 POC Glucose (mg/dL) 125 H (70-110) mg/dL Assessment and Plan Assessment: This is a 68 y/o woman with hx of stroke with residual left sided weakness who yesterday family members felt she was weaker than baseline on left with speech difficulty and very slow. She is not on antiplatelets at home. It seems she has prior weakness and refused to seek medical attending. Acute left sided weakness more than baseline, with severe expressive aphasia. On exam also has right facial weakness. Likely acute/subacute CVA. No IV thrombolytic since outside window. 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 Seems due to chronic small vessel disease Hypertension DM (HbA1c 9.1). According to patient has hx of DM. Plan: She is started on ASA 325mg daily by ED and Plavix 75mg daily by Primary. She was not on antiplatelets prior to this. She is on Lipitor 40mg daily. Pending MRI Brain and per nurse will be completed tomorrow possibly. In the mean time since patient continues to has severe aphasia, will get repeat CT head to assess if any new stroke not seen on initial CT. I will obtain routine EEG because of confusion to R/O active seizure or discharges. neuro checks Cardiac monitoring PT, OT and [facility] are consulted. Will defer the rest of medical management to primary team. For DVT prophylaxis: On lovenox The plan is discussed with the nurse. Dr. Colbert will resume neurology service tomorrow A.M. Time with Patient: Less than 30
[2023-08-08 12:03] LABS: Glucose,Whole Blood 137 mg/dL (70-110)
--- NOTE | 2023-08-08 14:57 | CT ---
EXAMINATION TYPE: CT brain wo con CT DLP: 1093.8 mGycm, Automated exposure control for dose reduction was used. DATE OF EXAM: 08/08/2023 12:08 PM COMPARISON: None. CLINICAL INDICATION:Female, 68 years old with history of confusion, ams TECHNIQUE: Brain: Axial CT images of the brain were obtained with coronal and sagittal reformats created and rev iewed. Contrast used: None. Oral contrast used: None. FINDINGS: Brain: Extra-axial spaces: No abnormal extra-axial fluid collections. Ventricular system: Within normal limits Cerebral parenchyma: No acute intraparenchymal hemorrhage or mass effect. The trejo-white junction is well differentiated. Cerebellum: Unremarkable. Mass effect: No evidence of midline shift. Intracranial vasculature: Atherosclerotic calcifications of the intracranial vessels. Soft tissues: Normal. Calvarium/osseous structures: No depressed skull fracture. Paranasal sinuses and mastoid air cells: Mild scattered paranasal sinus disease. Visualized orbits: Orbital contents are intact. IMPRESSION: 1. No acute intracranial process. 2. Nonspecific white matter changes, likely secondary to chronic small vessel ischemic disease.
--- NOTE | 2023-08-08 16:22 | P.PN ---
Progress Note - Text Progress Note Date: 08/08/23 Chief Complaint: Patient not speaking 68-year-old patient, brought to the ER by EMS. Per the EMS patient is presenting with left-sided weakness. Facial droop arm drift leg weakness. Unable to speak. Patient was last seen normal at 6 PM. Blood glucose was 159.. No family at the bedside. In the ER patient is able to move her left side. And she could only say yeah to me. EMS was called around 9 PM. Spoke to patient's daughter Nia Lo, who lives out of town. Telephone #[phone]. Patient has history of bipolar. Since [place] time she noted that the patient is being Active. Patient used to live in a place called [address]. But decided to leave the place and stay with us ID: Luci. This was a person from her [employer] gnosticist. Patient has been smoking maybe a pack to 2 packs a day for a long time. The daughter met the patient about 3 weeks ago. Patient is able to answer questions. Use a walker. Patient denies expressed to the daughter that she wants to be a DNR. August 06: Still has left-sided weakness. Weakness on right side of the face. Patient's friend caregiver at the bedside. Patient may say words slowly. Ate 100% for breakfast with assistance. August 07: Able to speak slowly. Left-sided weakness persists. Tolerating diet. Active Medications Acetaminophen (Acetaminophen Tab 325 Mg Tab) 650 mg PO Q6HR PRN PRN Reason: Mild Pain or Fever > 100.5 Albuterol/Ipratropium (Ipratropium-Albuterol 3 Ml Neb) 3 ml INHALATION RT-TID [facility] Last Admin: 08/08/23 11:30 Dose: 3 ml Aspirin (Aspirin 81 Mg) 81 mg PO DAILY [facility] Last Admin: 08/08/23 08:50 Dose: 81 mg Atorvastatin Calcium (Atorvastatin 40 Mg Tab) 40 mg PO DAILY [facility] Last Admin: 08/08/23 08:50 Dose: 40 mg Calcium Carbonate/Glycine (Calcium Carbonate 500 Mg Chewable) 1,000 mg PO Q4HR PRN PRN Reason: Dyspepsia Clopidogrel Bisulfate (Clopidogrel 75 Mg Tab) 75 mg PO DAILY [facility] Last Admin: 08/08/23 08:50 Dose: 75 mg Dextrose/Water (Dextrose 50% Syringe 50 Ml) 25 ml IVP PER PROTOCOL PRN; Protocol PRN Reason: Hypoglycemia Dextrose/Water (Dextrose 50% Syringe 50 Ml) 50 ml IVP PER PROTOCOL PRN; Protocol PRN Reason: Hypoglycemia Enoxaparin Sodium (Enoxaparin 40 Mg/0.4 Ml Syringe) 40 mg SQ DAILY [facility] Last Admin: 08/08/23 08:50 Dose: 40 mg Lisinopril/HCTZ (Lisinopril-Hctz 20-12.5 Mg 1 Each Tab) 1 each PO BID [facility] Last Admin: 08/08/23 08:50 Dose: 1 each Sodium Chloride (Saline 0.9%) 1,000 mls @ 50 mls/hr IV .Q20H [facility] Last Admin: 08/07/23 21:15 Dose: 50 mls/hr Insulin Aspart (Insulin Aspart (Novolog) 100 Unit/Ml Vial) 0 unit SQ AC-TID [facility]; Protocol Last Admin: 08/08/23 12:10 Dose: Not Given Insulin Detemir (Insulin Detemir (Levemir) 100 Unit/Ml Syr) 16 unit SQ DAILY@0700 [facility] Last Admin: 08/08/23 06:41 Dose: 16 unit Lactulose (Lactulose 20 Gm/30 Ml Cup) 20 gm PO DAILY PRN PRN Reason: Constipation Levothyroxine Sodium (Levothyroxine 100 Mcg Tab) 100 mcg PO 0630 [facility] Last Admin: 08/08/23 06:41 Dose: 100 mcg Lorazepam (Lorazepam 0.5 Mg Tab) 0.5 mg PO Q6HR PRN PRN Reason: Anxiety Melatonin (Melatonin 3 Mg Tablet) 3 mg PO HS PRN PRN Reason: Insomnia Naloxone HCl (Naloxone 0.4 Mg/Ml 1 Ml Vial) 0.2 mg IV Q2M PRN PRN Reason: Opioid Reversal Nicotine (Nicotine 21mg/24hr Patch) 1 patch TRANSDERM DAILY [facility] Last Admin: 08/08/23 10:21 Dose: Not Given Patient's Own ( Dulaglutide [ Trulicity] 1.5 Mg/0. 5 Ml Each) 1.5 mg SQ Q7D [facility] Last Admin: 08/06/23 11:56 Dose: Not Given Ondansetron HCl (Ondansetron 4 Mg/2 Ml Vial) 4 mg IVP Q8HR PRN PRN Reason: Nausea And Vomiting Quetiapine Fumarate (Quetiapine 25 Mg Tab) 12.5 mg PO HS [facility] Last Admin: 08/07/23 21:14 Dose: 12.5 mg Social history: Smoker. Lives with a friend. Physical examination: VITAL SIGNS: 98.3, 109, 17, 138 x 78, 96% room air GENERAL: BMI 24.6, reclining in bed awake. EYES: Pupils equal. Conjunctiva aneta l. HEENT: External appearance of nose and ears normal, oral cavity grossly normal. NECK: JVD not raised; masses not palpable. HEART: First and second heart sounds are normal; no edema. LUNGS: Respiratory rate normal; decreased breath sounds n. ABDOMEN: Soft, nontender, liver spleen not palpable, no masses palpable. PSYCH: Patient not able to speak l. MUSCULOSKELETAL:No Clubbing/cyanosis;muscles-grossly intact. OA NEUROLOGICAL: Speaking slowly.- slurred. Right facial weakness. Left-sided weakness power 3/5.. INVESTIGATIONS, reviewed in the clinical context: LDL 126 2D echocardiogram: EF 55 to 60%. August 05, 2023: White count 9.9 hemoglobin 16.1 platelets 259 sodium 138 potassium 4.6 BUN 29 creatinine 0.67 AST 41 ALT 47 Troponin I less than 0.012 EKG tracing personally reviewed by me-normal sinus rhythm. CT scan head without contrast: Age-indeterminate right thalamic and anterior limb left internal capsule lacunar infarct. Small old right cerebellar infarct. Nonspecific white matter changes. CT angiogram head and neck: Mild calcified plaque at bilateral bulb. No significant stenosis Chest x-ray film personally reviewed by me-hyperinflated Assessment plan: -Acute stroke in the brainstem., With right facial weakness left-sided weakness Aspirin. Lipitor. Plavix. Neurochecks. Neurology following PT OT -Diabetes mellitus type 2, on oral hypoglycemic Levemir to 16 units. Follow Accu-Cheks with sliding scale -Acute dysphagia secondary to stroke: Some improvement send initial presentation Speech therapy consult -COPD and a current smoker DuoNeb 4 times daily -Hyperlipidemia Lipitor -Chronic nicotine dependence, cigarette smoker -Acute dysphagia from stroke. Seen by speech therapist. pured aspiration diet. -Essential hypertension, controlled lisinopril hydrochlorothiazide 20/12.5, to 1 tablet twice daily -Primary osteoarthritis Tylenol as needed -Bipolar disorder. As per the daughter patient has stopped taking medications a while ago. At this point patient not able to talk. Will hold off any psychiatry consultation till patient able to speak -DNR [as per the daughter, patient's wishes] -Consult psychiatric social worker supervisor. To help with disposition and help daughter with legal guardianship Continue current treatment plan. For rehab Past Medical History Additional Past Medical History / Comment(s): hx stroke per EMS History of Any Multi-Drug Resistant Organisms: Unobtainable Past Surgical History: Unable to Obtain Past Psychological History: Unable to Obtain Smoking Status: Unknown if ever smoked Past Alcohol Use History: Unable to Obtain Past Drug Use History: Unable to Obtain
[2023-08-08 17:02] LABS: Glucose,Whole Blood 80 mg/dL (70-110)
[2023-08-08] MEDS ORDERED: ZINC OXIDE PASTE (Z-GUARD) 1 APPLIC TOPICAL PRN (20:16)
[2023-08-08 21:26] LABS: Glucose,Whole Blood 131 mg/dL (70-110)
[2023-08-09 05:54] LABS: Glucose,Whole Blood 84 mg/dL (70-110)
[2023-08-09 11:31] LABS: Glucose,Whole Blood 294 mg/dL (70-110)
--- NOTE | 2023-08-09 13:41 | MR ---
EXAMINATION TYPE: MR brain wo con DATE OF EXAM: 08/09/2023 COMPARISON: CT brain 08/08/2023 HISTORY: Stroke. Left sided weakness and aphasia. CONTRAST: Performed utilizing 0 mL intravenous Gadavist gadolinium contrast. TECHNIQUE: Multiplanar, multiecho imaging on a 3.0 Lu magnet is performed through the brain. Stud y is performed within 24 hours of arrival to the hospital. The craniovertebral junction is normal. The pituitary is normal. Diffusion-weighted imaging is performed. There are couple of punctate hyperintensities within the in ferior medial right cerebellum. Small lacunar infarcts could be considered. Couple of punctate hyperi ntensities may be adjacent to the fourth ventricle. Series 3 image 72. There is a punctate hyperinten sity along the medial occipital lobe. Series 303 image 104. Some hyperintensity adjacent to the tempo ral horn right lateral ventricle, series 303 image 104. There is punctate hyperintensity within the r ight parieto-occipital cortex region, series 303 image 144. Punctate hyperintensities within the post erior right parietal lobe. Series 303 image 168. There is a larger area of hyperintensity on diffusion along the medial cortex adjacent to the left la teral ventricle, series 303 image 168. Punctate hyperintensities within the left centrum semiovale, s eries 303 image 192. There are some additional hyperintensities adjacent to the ventricles on inversion recovery weighted sequences. These have a more chronic appearance without corresponding diffusion weighted imaging hype rintensities. Ventricles and sulci are appropriate for the patient age. IMPRESSION: 1. Bilateral punctate cortical diffusion weighted abnormalities compatible with acute ischemic areas. The largest of these is along the medial left hemisphere within the corpus callosum within the addit ional areas both above and below the tentorium. Consider venous infarcts within the differential.
[2023-08-09 17:35] LABS: Glucose,Whole Blood 146 mg/dL (70-110)
[2023-08-09] MEDS: ACETAMINOPHEN TAB 325 MG TAB PO PRN (17:42)
--- NOTE | 2023-08-09 17:46 | P.PN ---
Progress Note - Text Progress Note Date: 08/09/23 Chief Complaint: Patient not speaking 68-year-old patient, brought to the ER by EMS. Per the EMS patient is presenting with left-sided weakness. Facial droop arm drift leg weakness. Unable to speak. Patient was last seen normal at 6 PM. Blood glucose was 159.. No family at the bedside. In the ER patient is able to move her left side. And she could only say yeah to me. EMS was called around 9 PM. Spoke to patient's daughter Nia Lo, who lives out of town. Telephone #[phone]. Patient has history of bipolar. Since [place] time she noted that the patient is being Active. Patient used to live in a place called [address]. But decided to leave the place and stay with us ID: Luci. This was a person from her [employer]. Patient has been smoking maybe a pack to 2 packs a day for a long time. The daughter met the patient about 3 weeks ago. Patient is able to answer questions. Use a walker. Patient denies expressed to the daughter that she wants to be a DNR. August 06: Still has left-sided weakness. Weakness on right side of the face. Patient's friend caregiver at the bedside. Patient may say words slowly. Ate 100% for breakfast with assistance. August 07: Able to speak slowly. Left-sided weakness persists. Tolerating diet. August 08: Speech remains slow. Left-sided weakness. On pured diet with nectar thick liquids. Aspiration precautions. [facility] is down for referrals to ECF. Spoke to child protective services social worker. No discharge today Daily that Active Medications Acetaminophen (Acetaminophen Tab 325 Mg Tab) 650 mg PO Q6HR PRN PRN Reason: Mild Pain or Fever > 100.5 Last Admin: 08/09/23 17:42 Dose: 650 mg Albuterol/Ipratropium (Ipratropium-Albuterol 3 Ml Neb) 3 ml INHALATION RT-TID [facility] Last Admin: 08/09/23 12:04 Dose: 3 ml Aspirin (Aspirin 81 Mg) 81 mg PO DAILY [facility] Last Admin: 08/09/23 09:03 Dose: 81 mg Atorvastatin Calcium (Atorvastatin 40 Mg Tab) 40 mg PO DAILY [facility] Last Admin: 08/09/23 09:03 Dose: 40 mg Calcium Carbonate/Glycine (Calcium Carbonate 500 Mg Chewable) 1,000 mg PO Q4HR PRN PRN Reason: Dyspepsia Clopidogrel Bisulfate (Clopidogrel 75 Mg Tab) 75 mg PO DAILY [facility] Last Admin: 08/09/23 09:03 Dose: 75 mg Dextrose/Water (Dextrose 50% Syringe 50 Ml) 25 ml IVP PER PROTOCOL PRN; Protocol PRN Reason: Hypoglycemia Dextrose/Water (Dextrose 50% Syringe 50 Ml) 50 ml IVP PER PROTOCOL PRN; Protocol PRN Reason: Hypoglycemia Enoxaparin Sodium (Enoxaparin 40 Mg/0.4 Ml Syringe) 40 mg SQ DAILY [facility] Last Admin: 08/09/23 09:03 Dose: 40 mg Lisinopril/HCTZ (Lisinopril-Hctz 20-12.5 Mg 1 Each Tab) 1 each PO BID [facility] Last Admin: 08/09/23 09:03 Dose: 1 each Sodium Chloride (Saline 0.9%) 1,000 mls @ 50 mls/hr IV .Q20H [facility] Last Admin: 08/09/23 09:03 Dose: Not Given Insulin Aspart (Insulin Aspart (Novolog) 100 Unit/Ml Vial) 0 unit SQ AC-TID [facility]; Protocol Last Admin: 08/09/23 17:35 Dose: Not Given Insulin Detemir (Insulin Detemir (Levemir) 100 Unit/Ml Syr) 16 unit SQ DAILY@0700 [facility] Last Admin: 08/09/23 06:28 Dose: 16 unit Lactulose (Lactulose 20 Gm/30 Ml Cup) 20 gm PO DAILY PRN PRN Reason: Constipation Levothyroxine Sodium (Levothyroxine 100 Mcg Tab) 100 mcg PO 0630 [facility] Last Admin: 08/09/23 06:28 Dose: 100 mcg Lorazepam (Lorazepam 0.5 Mg Tab) 0.5 mg PO Q6HR PRN PRN Reason: Anxiety Melatonin (Melatonin 3 Mg Tablet) 3 mg PO HS PRN PRN Reason: Insomnia Naloxone HCl (Naloxone 0.4 Mg/Ml 1 Ml Vial) 0.2 mg IV Q2M PRN PRN Reason: Opioid Reversal Nicotine (Nicotine 21mg/24hr Patch) 1 patch TRANSDERM DAILY [facility] Last Admin: 08/09/23 09:04 Dose: Not Given Patient's Own ( Dulaglutide [ Trulicity] 1.5 Mg/0. 5 Ml Each) 1.5 mg SQ Q7D [facility] Last Admin: 08/06/23 11:56 Dose: Not Given Ondansetron HCl (Ondansetron 4 Mg/2 Ml Vial) 4 mg IVP Q8HR PRN PRN Reason: Nausea And Vomiting Petrolatum (Zinc Oxide Paste (Z-Guard) 1 Applic) 1 applic TOPICAL Q2HR PRN; Protocol PRN Reason: Wound Healing Quetiapine Fumarate (Quetiapine 25 Mg Tab) 12.5 mg PO HS [facility] Last Admin: 08/08/23 21:17 Dose: 12.5 mg Social history: Smoker. Lives with a friend. Physical examination: VITAL SIGNS: 98.2, 110, 16, 118/75, 96% room air GENERAL: Up in a recliner EYES: Pupils equal. Conjunctiva aneta l. HEENT: External appearance of nose and ears normal, oral cavity grossly normal. NECK: JVD not raised; masses not palpable. HEART: First and second heart sounds are normal; no edema. LUNGS: Respiratory rate normal; decreased breath sounds n. ABDOMEN: Soft, nontender, liver spleen not palpable, no masses palpable. PSYCH: Patient not able to speak l. MUSCULOSKELETAL:No Clubbing/cyanosis;muscles-grossly intact. OA NEUROLOGICAL: Speaking slowly.- slurred. Right facial weakness. Left-sided weakness power 3/5.. INVESTIGATIONS, reviewed in the clinical context: LDL 126 2D echocardiogram: EF 55 to 60%. August 05, 2023: White count 9.9 hemoglobin 16.1 platelets 259 sodium 138 potassium 4.6 BUN 29 creatinine 0.67 AST 41 ALT 47 Troponin I less than 0.012 EKG tracing personally reviewed by me-normal sinus rhythm. CT scan head without contrast: Age-indeterminate right thalamic and anterior limb left internal capsule lacunar infarct. Small old right cerebellar infarct. Nonspecific white matter changes. CT angiogram head and neck: Mild calcified plaque at bilateral bulb. No significant stenosis Chest x-ray film personally reviewed by me-hyperinflated Assessment plan: -Acute stroke in the brainstem., With right facial weakness left-sided weakness Aspirin. Lipitor. Plavix. Neurochecks. Neurology following PT OT -Diabetes mellitus type 2, on oral hypoglycemic Levemir to 16 units. Follow Accu-Cheks with sliding scale -Acute dysphagia secondary to stroke: Some improvement send initial presentation Speech therapy consult -COPD and a current smoker DuoNeb 4 times daily -Hyperlipidemia Lipitor -Chronic nicotine dependence, cigarette smoker -Acute dysphagia from stroke. Seen by speech therapist. pured aspiration diet. -Essential hypertension, controlled lisinopril hydrochlorothiazide 20/12.5, to 1 tablet twice daily -Primary osteoarthritis Tylenol as needed -Bipolar disorder. As per the daughter patient has stopped taking medications a while ago. At this point patient not able to talk. Will hold off any psychiatry consultation till patient able to speak -DNR [as per the daughter, patient's wishes] -Consult child protective services social worker. To help with disposition and help daughter with legal guardianship Pending discharge to rehab. Referral system to [facility] is down. Other medication treatment plan to continue. Past Medical History Additional Past Medical History / Comment(s): hx stroke per EMS History of Any Multi-Drug Resistant Organisms: Unobtainable Past Surgical History: Unable to Obtain Past Psychological History: Unable to Obtain Smoking Status: Unknown if ever smoked Past Alcohol Use History: Unable to Obtain Past Drug Use History: Unable to Obtain
[2023-08-09 20:16] LABS: Glucose,Whole Blood 191 mg/dL (70-110)
--- NOTE | 2023-08-09 20:26 | P.PN ---
Subjective Progress Note Date: 08/09/23 Patient was initially seen by Dr. Josh Gamez. Please refer to his note for details. Patient is a 68-year-old female with worsening speech and left-sided weakness. EEG was performed, which was mildly abnormal because of slowing suggestive of mild encephalopathy. No epileptiform activity was seen. Patient is laying comfortably in the bed. She is undergoing breathing treatment. Patient admits to smoking 1 cigarette/day for some years, but quit smoking 4 years ago. Patient admits to having some headache in the last few days. It involves the right posterior side. Some other workup performed recently. Serum glucose is 139 TSH: 2.78 HbA1c: 9.1 Lipid panel: TG 116, cholestrol 199, LDL [address] head is reported as no definitive acute stroke. Age indeterminant right tahalmic and anterior limb left internal capsule lacunar infarct. Small old right cerebellar infarct. I personally reviewed CT head and agree no acute. CTA head and neck: No large vessel occlusion. Has multifocal plaque without occlusion. MIld calcified plaque at bilateral carotid bulb without significant stenosis. Code stroke was activated by ED team. He spoke with stroke team and recommended no IV thrombolytic since outside window. It seems risk outweigh benefits. 2D echo is reported as Preserved LV size and function. No mass. No right to left shunt. Objective - Vital Signs Vital signs: Vital Signs Temp 98.2 F 08/09/23 16:00 Pulse 98 08/09/23 20:12 Resp 16 08/09/23 16:00 BP 118/75 08/09/23 16:00 Pulse Ox 96 08/09/23 16:00 FiO2 Intake & Output 08/09/23 08/09/23 08/10/23 06:59 18:59 06:59 Intake Total 600 Output Total 200 Balance -200 600 Intake: Oral 600 Output: Urine 200 Other: Voiding Method Diaper Diaper # Voids 1 1 # Bowel Movements 1 1 - Exam On examination patient is alert and awake in no distress. Patient's speech is very slow, slightly dysarthric, almost appearing like pseudobulbar state, at times difficult to understand. No obvious aphasia. Her pupils are equal, round and reacting, visual townsend are full. Face is symmetric. Tongue protrudes to midline. Pupils are equal, round and reactive to light. On muscle strength testing there is no obvious pronator drift although patient did not cooperate. Patient's front desk manager is equal bilaterally. It is no more than 4+ on either side. Biceps is 4+ on the right, 4-on the left. Her legs are equally weak. Reflexes are 2 at the knees, and plantars are downgoing. Patient appears to be somewhat very slow mentation, bradykinetic. Tone is normal bilaterally. - Labs CBC & Chem 7: 08/05/23 23:27 08/05/23 23:27 Labs: Abnormal Lab Results - Last 24 Hours (Table) 08/08/23 08/09/23 08/09/23 Range/Units 21:24 11:30 17:26 POC Glucose (mg/dL) 131 H 294 H 146 H (70-110) mg/dL Assessment and Plan Assessment: This is a 68 y/o woman with hx of stroke with residual left sided weakness who yesterday family members felt she was weaker than baseline on left with speech difficulty and very slow. She is not on antiplatelets at home. It seems she has prior weakness and refused to seek medical attending. Acute left sided weakness more than baseline, with severe expressive aphasia. On exam also has right facial weakness. Likely acute/subacute CVA. No IV thrombolytic since outside window. 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 Seems due to chronic small vessel disease Hypertension DM (HbA1c 9.1). According to patient has hx of DM. Hyperlipidemia Plan: She is started on ASA 325mg daily by ED and Plavix 75mg daily by Primary. She was not on antiplatelets prior to this. She is on Lipitor 40mg daily. MRI Brain revealed bilateral punctate cortical diffusion weighted abnormalities, compatible with acute ischemic areas. The largest of these is along the medial left hemisphere within the corpus callosum within the additional areas both above and below the tentorium. Consider venous infarcts within the differential. I personally reviewed MRI agree with the findings. These infarcts are not related to venous insufficiency. Infarcts are most likely embolic, and cardiac in source. Routine EEG was abnormal due to background slowing, suggestive of mild encephalopathy. No epileptiform activity was seen. CTA head and neck: No large vessel occlusion. Has multifocal plaque without occlusion. MIld calcified plaque at bilateral carotid bulb without significant stenosis. Code stroke was activated by ED team. He spoke with stroke team and recommended no IV thrombolytic since outside window. It seems risk outweigh benefits. 2D echo is reported as Preserved LV size and LVEF 55 to 60%. No mass. No right to left shunt. Left atrial size is normal. HbA1c: 9.1 Lipid panel: TG 116, cholestrol 199, LDL 126 and HDL 4.04 Patient's ischemic strokes are likely related to multiple vascular risk factors. Need to aggressively control all vascular risk factors, including optimal control of diabetes, hyperlipidemia, hypertension. Patient was not taking any antiplatelet medication at home. Patient started on dual antiplatelet medications. Recommend 30-day event monitor after discharge to rule out any paroxysmal atrial fibrillation. Continue neuro checks Cardiac monitoring PT, OT and [employer] are consulted. Will defer the rest of medical management to primary team. For DVT prophylaxis: On lovenox Neurologically clear for discharge to rehab facility.
--- NOTE | 2023-08-09 23:05 | EEG ---
ELECTROENCEPHALOGRAM REPORT PREAMBLE: This is a 68-year-old female with confusion, rule out any seizure. CURRENT MEDICATIONS: 1. Aspirin. 2. Lipitor. 3. Plavix. 4. Levemir. 5. Cephulac. 6. Ativan. 7. Synthroid. 8. Trulicity. 9. Seroquel. 10.Zofran. EEG FINDINGS: This is a 21-channel digital EEG recorded with video component, utilizing 10/20 international system with referential and bipolar montages. Background consists of moderately well-developed, well-regulated, predominantly 6 to 7 hertz, moderate amplitude theta activity seen in bihemispheric region. Occasional background does reach 8 hertz alpha range. Background seems to be slightly reactive to eye opening or closing. Different stages of sleep were not seen. No focal or generalized epileptiform activity was seen. Hyperventilation and photic stimulation were not performed. IMPRESSION: This is an abnormal EEG due to background slowing, suggestive of mild encephalopathy. No focal, lateralized, or obvious epileptiform activity was seen. Clinical correlation is recommended. MMODL / IJN: [id number] /
[2023-08-10 04:24] VITALS: TEMP 97.9
[2023-08-10 06:22] LABS: Glucose,Whole Blood 160 mg/dL (70-110)
[2023-08-10 11:45] LABS: Glucose,Whole Blood 189 mg/dL (70-110)
[2023-08-10 12:35] VITALS: BP 135/76; RESP 18
[2023-08-10 13:17] VITALS: PULSE 96
--- NOTE | 2023-08-10 13:17 | P.DS ---
Providers Date of admission: 08/06/23 00:30 Expected date of discharge: 08/10/23 Attending physician: Jake Wallace Consults: 08/06/23 00:31 Consult Physician Routine Consulting Provider: Josh Gamez Consult Reason/Comments: Aphasia. Acute stroke Do you want consulting provider notified?: Yes Primary care physician: [facility] Course: Chief Complaint: Patient not speaking 68-year-old patient, brought to the ER by EMS. Per the EMS patient is presenting with left-sided weakness. Facial droop arm drift leg weakness. Unable to speak. Patient was last seen normal at 6 PM. Blood glucose was 159.. No family at the bedside. In the ER patient is able to move her left side. And she could only say yeah to me. EMS was called around 9 PM. Spoke to patient's daughter Nia Lo, who lives out of town. Telephone #[phone]. Patient has history of bipolar. Since [place] time she noted that the patient is being Active. Patient used to live in a place called [address]. But decided to leave the place and stay with us ID: Luci. This was a person from her [employer]. Patient has been smoking maybe a pack to 2 packs a day for a long time. The daughter met the patient about 3 weeks ago. Patient is able to answer questions. Use a walker. Patient denies expressed to the daughter that she wants to be a DNR. August 06: Still has left-sided weakness. Weakness on right side of the face. Patient's friend caregiver at the bedside. Patient may say words slowly. Ate 100% for breakfast with assistance. August 07: Able to speak slowly. Left-sided weakness persists. Tolerating diet. August 08: Speech remains slow. Left-sided weakness. On pured diet with nectar thick liquids. Aspiration precautions. [facility] is down for referrals to ECF. Spoke to social services analyst. No discharge today August 09: Tolerating diet. Slow speech. Spoke to social services analyst.-Authorization has been received. Patient to go to [facility]. I did update patient's daughter Nia. Discussion and discharge planning more than 35 minutes Social history: Smoker. Lives with a friend. Physical examination: VITAL SIGNS: 97.9, 97, 18, 135/76, 99% room air GENERAL: Up in a recliner EYES: Pupils equal. Conjunctiva aneta l. HEENT: External appearance of nose and ears normal, oral cavity grossly normal. NECK: JVD not raised; masses not palpable. HEART: First and second heart sounds are normal; no edema. LUNGS: Respiratory rate normal; decreased breath sounds n. ABDOMEN: Soft, nontender, liver spleen not palpable, no masses palpable. PSYCH: Patient not able to speak l. MUSCULOSKELETAL:No Clubbing/cyanosis;muscles-grossly intact. OA NEUROLOGICAL: Speaking slowly.- slurred. Right facial weakness. Left-sided weakness power 3/5.. INVESTIGATIONS, reviewed in the clinical context: LDL 126 2D echocardiogram: EF 55 to 60%. August 05, 2023: White count 9.9 hemoglobin 16.1 platelets 259 sodium 138 potassium 4.6 BUN 29 creatinine 0.67 AST 41 ALT 47 Troponin I less than 0.012 EKG tracing personally reviewed by me-normal sinus rhythm. CT scan head without contrast: Age-indeterminate right thalamic and anterior limb left internal capsule lacunar infarct. Small old right cerebellar infarct. Nonspecific white matter changes. CT angiogram head and neck: Mild calcified plaque at bilateral bulb. No significant stenosis Chest x-ray film personally reviewed by me-hyperinflated Assessment plan: -Acute stroke in the brainstem., With right facial weakness left-sided weakness Aspirin. Lipitor. Plavix-for total of 21 days. Neurochecks. Neurology following PT OT Follow-up outpatient-Dr. Nicky Schultz -Diabetes mellitus type 2, on oral hypoglycemic Levemir to 16 units. Trulicity. Follow Accu-Cheks with sliding scale -Acute dysphagia secondary to stroke: Some improvement since initial presentation Speech therapy following Pured diet. [place] thick liquids-, aspiration diet -COPD and a current smoker DuoNeb 4 times daily -Hyperlipidemia Lipitor -Chronic nicotine dependence, cigarette smoker -Acute dysphagia from stroke. Seen by speech therapist. pured aspiration diet. -Essential hypertension, controlled lisinopril hydrochlorothiazide 20/12.5, to 1 tablet twice daily -Primary osteoarthritis Tylenol as needed -Bipolar disorder. As per the daughter patient has stopped taking medications a while ago. At this point patient not able to talk. Follow-up with psychiatry outpatient with [facility] -DNR [as per the daughter, patient's wishes] Disposition: [facility] Past Medical History Additional Past Medical History / Comment(s): hx stroke per EMS History of Any Multi-Drug Resistant Organisms: Unobtainable Past Surgical History: Unable to Obtain Past Psychological History: Unable to Obtain Smoking Status: Unknown if ever smoked Past Alcohol Use History: Unable to Obtain Past Drug Use History: Unable to Obtain Plan - Discharge Summary Discharge Rx Participant: No New Discharge Prescriptions: New Clopidogrel [Plavix] 75 mg PO DAILY #18 tab Acetaminophen Tab [Tylenol] 650 mg PO Q6HR PRN tab PRN Reason: Mild Pain Or Fever > 100.5 Lisinopril-Hctz 20-12.5 mg [Zestoretic 20-12.5] 1 each PO BID tab Aspirin 81 mg PO DAILY tab Ipratropium-Albuterol Nebulize [Duoneb 0.5 mg-3 mg/3 ml Soln] 3 ml INHALATION RT-TID each Nicotine 21Mg/24Hr Patch [Habitrol] 1 patch TRANSDERM DAILY patch Atorvastatin [Lipitor] 40 mg PO DAILY tab INSULIN ASPART (NovoLOG) [NovoLOG (formulary)] 0 unit SQ AC-TID each QUEtiapine [SEROquel] 12.5 mg PO HS tab Continue Dulaglutide [Trulicity] 1.5 mg SQ Q7D Cholecalciferol [Vitamin D3 (25 Mcg = 1000 Iu)] 50 mcg PO DAILY Discontinued Insulin Detemir (Levemir) [Levemir] 20 unit SQ DAILY metFORMIN HCL [Glucophage] 1,000 mg PO BID No Action Levothyroxine Sodium [Synthroid] 100 mcg PO AC-BRKFST Discharge Medication List Cholecalciferol [Vitamin D3 (25 Mcg = 1000 Iu)] 50 mcg PO DAILY 08/06/23 [History] Dulaglutide [Trulicity] 1.5 mg SQ Q7D 08/06/23 [History] Levothyroxine Sodium [Synthroid] 100 mcg PO AC-BRKFST 08/06/23 [History] Acetaminophen Tab [Tylenol] 650 mg PO Q6HR PRN tab 08/09/23 [Rx] Aspirin 81 mg PO DAILY tab 08/09/23 [Rx] Atorvastatin [Lipitor] 40 mg PO DAILY tab 08/09/23 [Rx] Clopidogrel [Plavix] 75 mg PO DAILY #18 tab 08/09/23 [Rx] INSULIN ASPART (NovoLOG) [NovoLOG (formulary)] 0 unit SQ AC-TID each 08/09/23 [Rx] Ipratropium-Albuterol Nebulize [Duoneb 0.5 mg-3 mg/3 ml Soln] 3 ml INHALATION RT-TID each 08/09/23 [Rx] Lisinopril-Hctz 20-12.5 mg [Zestoretic 20-12.5] 1 each PO BID tab 08/09/23 [Rx] Nicotine 21Mg/24Hr Patch [Habitrol] 1 patch TRANSDERM DAILY patch 08/09/23 [Rx] QUEtiapine [SEROquel] 12.5 mg PO HS tab 08/09/23 [Rx] Follow up Appointment(s)/Referral(s): Jil Jacobs MD [REFERRING] - 2 Weeks Pato Miguel MD [Primary Care Provider] - 1-2 days
== END 2023-08-10 15:00 | DRG 65 ==
LOC: EC 23:07 → 3SCARD 08-06 00:30
PROVIDERS: ADMIT Hospitalist; ATTEND Hospitalist
DX: I63.81 Other cerebral infarction due to occlusion or stenosis of small artery (principal); I69.354 Hemiplegia and hemiparesis following cerebral infarction affecting left non-dominant side; R47.01 Aphasia; R29.713 NIHSS score 13; E11.9 Type 2 diabetes mellitus without complications; J44.9 Chronic obstructive pulmonary disease, unspecified; R47.1 Dysarthria and anarthria; F17.210 Nicotine dependence, cigarettes, uncomplicated; E78.5 Hyperlipidemia, unspecified; I10 Essential (primary) hypertension; F31.9 Bipolar disorder, unspecified; M19.91 Primary osteoarthritis, unspecified site; Z66 Do not resuscitate; Z79.899 Other long term (current) drug therapy; Z79.890 Hormone replacement therapy; Z79.84 Long term (current) use of oral hypoglycemic drugs; Z79.82 Long term (current) use of aspirin; Z79.4 Long term (current) use of insulin; Z79.02 Long term (current) use of antithrombotics/antiplatelets; Z79.85 Long-term (current) use of injectable non-insulin antidiabetic drugs
CPT/HCPCS: 36415; 70450; 70496; 70498; 70551; 71045; 80053; 80061; 82550; 83036; 84443; 84484; 85025; 85610; 85730; 93005; 93306; 94640; 95816; 96372; 96374; 99291